=== PATIENT | male | born 1995 | race Hispanic/Latino ===

== ENCOUNTER 2021-01-16 15:50 | Emergency (ER) | payer SELFPAY ==
[2021-01-16] MEDS ORDERED: Lidocaine 1% w/Epinephrine 1:100K 20 ML VIAL ONE (16:59)
[2021-01-16] MEDS ORDERED: Boostrix 0.5 ML (Tdap) VIAL ONE (18:37)
[2021-01-16] MEDS ORDERED: Bacitracin 1 PK ONE (18:37)
== END 2021-01-16 18:50 | disposition home or self-care (01) ==
LOC: CSHERS 15:50
DX: S67.197A Crushing injury of left little finger, initial encounter (principal); W23.0XXA Caught, crushed, jammed, or pinched between moving objects, initial encounter
CPT/HCPCS: 90471; 90715